=== PATIENT | female | born 1990 | race African-American/Black ===

== ENCOUNTER 2017-09-10 20:35 | Inpatient (IN) | payer SELFPAY ==
[~2017-09-10] VITALS: Ht 175.3 cm; Wt 87.1 kg
[~2017-09-10 20:35] MED LIST: METHYLERGONOVINE MALEATE 0.2MG TABLET ONE; MISOPROSTOL 200MCG TABLET ONE
[2017-09-10] MEDS ORDERED: DEXT 5%/LR + PITOCIN 20UNITS/L 1,000 ML IV SCH (21:28)
[2017-09-10] MEDS ORDERED: LACTATED RINGERS 1,000 ML IV SCH (21:28)
[2017-09-10] MEDS ORDERED: NALOXONE HCL 0.4 MG/ML 1ML VIAL IM PRN (21:30)
[2017-09-10] MEDS ORDERED: CARBOPROST TROMETHAMINE 250 MCG/ML AMPUL IM PRN (21:30)
[2017-09-10] MEDS ORDERED: METHYLERGONOVINE MALEATE 0.2 MG/ML IM PRN (21:30)
[2017-09-10 22:00] LABS: BASOPHILS % 0.9 % (0.0-2.0); EOSINOPHILS % 0.7 % (0.0-5.0); HEMATOCRIT. 29.5 % (36.0-48.0); HEMOGLOBIN. 9.5 g/dL (12.0-16.0); LYMPHOCYTES % 23.5 % (20.0-50.0); MEAN CORPUSCULAR HEMOGLOBIN 24.2 pg (28.0-32.0); MEAN CORPUSCULAR VOLUME 75.2 fL (81.0-99.0); MEAN PLATELET VOLUME 10.4 fl (7.4-10.4); NEUTROPHILS % 67.9 % (40.0-76.0); PLATELET 248 x1000/uL (130-400); RED BLOOD CELL COUNT 3.93 mill/uL (4.2-5.4); RED CELL DISTRIBUTION WIDTH 16.7 % (11.6-14.6)
[2017-09-10 22:05] LABS: CLARITY URINE CLEAR (CLEAR); COLOR URINE YELLOW (YELLOW); KETONES URINE TRACE (NEGATIVE); LEUKOCYTE ESTERASE URINE 2+ (NEGATIVE); NITRITE URINE NEGATIVE (NEGATIVE); OCCULT BLOOD URINE TRACE (NEGATIVE); PH URINE 6.5 (4.5-8.0); PROTEIN URINE 2+ (NEGATIVE)
[2017-09-10 22:10] LABS: CHLORIDE 107 mEq/L (98-107)
[2017-09-10 22:17] LABS: D-DIMER 4.2 mg/L FEU (<0.50); INR 0.9; PARTIAL THROMBOPLASTIN TIME 28.5 sec (23.4-31.0); PROTHROMBIN TIME 9.6 sec (9.4-11.6)
[2017-09-10 22:19] LABS: *BARBITURATES SCREEN URINE NEGATIVE (NEGATIVE); *BENZODIAZEPINES SCREEN URINE NEGATIVE (NEGATIVE)
[2017-09-10 22:20] LABS: *AMPHETAMINES SCREEN URINE PRESUMTIVE POSITIVE (NEGATIVE); *COCAINE SCREEN URINE NEGATIVE (NEGATIVE); CANNABINOID URINE SCREEN NEGATIVE (NEGATIVE); METHADONE URINE SCREEN NEGATIVE (NEGATIVE); OPIATES URINE SCREEN NEGATIVE (NEGATIVE); PHENCYCLIDINE URINE SCREEN NEGATIVE (NEGATIVE)
[2017-09-10 22:38] LABS: HEPATITIS B SURFACE ANTIGEN NEGATIVE; RUBELLA IGG 48.8 IU/mL (4.99-10)
[2017-09-10] MEDS ORDERED: MORPHINE SULFATE/PF 1MG/ML 10ML AMP ONE (22:48)
[2017-09-10] MEDS ORDERED: SODIUM BICARBONATE 4% (2.4MEQ) 5ML VIAL IV ONE (22:51)
[2017-09-10] MEDS ORDERED: CEFAZOLIN 2,000 MG in DEXT 5% WATER 100 ML IV NR (23:00)
[2017-09-10] MEDS ORDERED: ONDANSETRON HCL 4MG/2ML VIAL ONE (23:04)
[2017-09-10] MEDS ORDERED: METOCLOPRAMIDE HCL 10MG/2ML VIAL ONE (23:04)
[2017-09-10] MEDS ORDERED: SUCCINYLCHOLINE CHLORIDE 200MG/10ML VIAL IV ONE (23:40)
[2017-09-10] MEDS ORDERED: FENTANYL CITRATE/PF 50MCG/ML 2ML VIAL ONE (23:40)
[2017-09-10] MEDS ORDERED: PROPOFOL 200MG/20ML VIAL IV ONE (23:40)
[2017-09-11] VITALS (8 sets, daily range): BP systolic 130–156; BP diastolic 74–99
[2017-09-11] MEDS ORDERED: PROPOFOL 200MG/20ML VIAL IV ONE (00:19)
[2017-09-11] MEDS ORDERED: OXYTOCIN 10 UNITS/ML 1ML ONE ×2 (00:20→00:47)
[2017-09-11 00:51] LABS: BG BASE EXCESS -7.3 mmol/L (-2.0-2.0); BG FRACTION INSPIRED OXYGEN 21; BG HCO3 ACT 18.8 mmol/L (22.0-26.0); BG OXYGEN SATURATION 67.6 % (92.0-98.5); BG PCO2 40.1 mmHg (35.0-45.0); BG PH 7.289 (7.350-7.450); BG SAMPLE SITE OTHER; BG VENT MODE ROOM AIR
[2017-09-11 00:52] LABS: BG BASE EXCESS -4.4 mmol/L (-2.0-2.0); BG FRACTION INSPIRED OXYGEN 21; BG HCO3 ACT 25.3 mmol/L (22.0-26.0); BG PCO2 67.6 mmHg (35.0-45.0); BG PH 7.191 (7.350-7.450); BG PO2 < 30.3 mmHg (75.0-100.0); BG SAMPLE SITE OTHER; BG VENT MODE ROOM AIR
[2017-09-11] MEDS ORDERED: DEXT 5%/LR + PITOCIN 20UNITS/L 1,000 ML IV SCH (01:01)
[2017-09-11] MEDS ORDERED: BISACODYL 10MG SUPP PR PRN (01:15)
[2017-09-11] MEDS ORDERED: LANOLIN OINT 0.25 GM TUBE TOP PRN (01:15)
[2017-09-11] MEDS ORDERED: ONDANSETRON HCL 4MG/2ML VIAL IV PRN (01:15)
[2017-09-11] MEDS ORDERED: MORPHINE SULFATE 4 MG/ML CPJ (NOT FOR IM USE) IV PRN (01:15)
[2017-09-11] MEDS ORDERED: HYDROCODONE/ACETAMINOPHEN 5/325MG TABLET PO PRN (01:15)
[2017-09-11] MEDS ORDERED: DIPHENHYDRAMINE 25MG CAPSULE PO PRN (01:15)
[2017-09-11] MEDS: HYDRALAZINE 20MG/ML VIAL IV SCH ×2 (02:04→02:40)
[2017-09-11] MEDS ORDERED: HYDRALAZINE 20MG/ML VIAL ONE (02:38)
[2017-09-11] MEDS ORDERED: HYDRALAZINE 20MG/ML VIAL IV PRN (02:45)
[2017-09-11] MEDS: KETOROLAC 30MG/ML VIAL IV SCH ×3 (07:48→22:36)
[2017-09-11] MEDS: SIMETHICONE 80MG TABLET CHEW PO SCH ×4 (09:00→21:12)
[2017-09-11] MEDS: MAGNESIUM/ALUMINUM HYDROXIDE/SIMETHICONE 30ML UDC PO SCH ×4 (09:00→21:12)
[2017-09-11] MEDS: LABETALOL HCL 100MG TABLET PO SCH ×2 (09:29→21:11)
[2017-09-11 13:07] LABS: CHLORIDE 107 mEq/L (98-107)
[2017-09-11 13:09] LABS: D-DIMER 5.32 mg/L FEU (<0.50)
[2017-09-11] MEDS: DOCUSATE SODIUM 100MG CAPSULE PO SCH (21:13)
[2017-09-12 03:50] VITALS: BP 153/90
[2017-09-12] MEDS: KETOROLAC 30MG/ML VIAL IV SCH (06:41)
[2017-09-12 08:00] VITALS: BP 139/86
[2017-09-12] MEDS: SIMETHICONE 80MG TABLET CHEW PO SCH ×3 (08:16→21:18)
[2017-09-12] MEDS: MAGNESIUM/ALUMINUM HYDROXIDE/SIMETHICONE 30ML UDC PO SCH ×3 (08:16→21:18)
[2017-09-12] MEDS: LABETALOL HCL 100MG TABLET PO SCH ×2 (08:49→21:19)
[2017-09-12] MEDS: IBUPROFEN 400MG TABLET PO PRN (11:20)
[2017-09-12 12:00] VITALS: BP 134/81
[2017-09-12] MEDS: HYDROCODONE/ACETAMINOPHEN 5/325MG TABLET PO PRN ×2 (13:04→21:26)
[2017-09-12 13:30] LABS: HEMATOCRIT. 21.5 % (36.0-48.0); MEAN CORPUSCULAR HEMOGLOBIN 24.1 pg (28.0-32.0); MEAN CORPUSCULAR VOLUME 74.6 fL (81.0-99.0); PLATELET 211 x1000/uL (130-400); RED BLOOD CELL COUNT 2.89 mill/uL (4.2-5.4); RED CELL DISTRIBUTION WIDTH 17.2 % (11.6-14.6)
[2017-09-12 13:54] LABS: HEMOGLOBIN. 6.9 g/dL (12.0-16.0)
[2017-09-12 16:00] VITALS: BP 132/84
[2017-09-12 16:32] LABS: PLATELET ESTIMATE NORMAL
[2017-09-12] MEDS: FERROUS SULFATE 325MG TABLET PO SCH (18:36)
[2017-09-12 20:00] VITALS: BP 138/92
[2017-09-12] MEDS: DOCUSATE SODIUM 100MG CAPSULE PO SCH (21:18)
[2017-09-13] VITALS: BP 135/94
[2017-09-13 05:30] VITALS: BP 142/89
[2017-09-13] MEDS: HYDROCODONE/ACETAMINOPHEN 5/325MG TABLET PO PRN (05:59)
[2017-09-13 08:00] VITALS: BP 132/76
[2017-09-13] MEDS: FERROUS SULFATE 325MG TABLET PO SCH (13:07)
[2017-09-13] MEDS: IBUPROFEN 400MG TABLET PO PRN (13:08)
[2017-09-13] MEDS: LABETALOL HCL 100MG TABLET PO SCH (13:08)
[2017-09-15 14:21] LABS: AMPHETAMINE CONF URINE Positive (.)
== END 2017-09-13 16:30 | disposition home or self-care (01) | DRG 540 ==
LOC: L&D 20:35 → OBSVTOIN 20:35 → 7EST PP/OB 09-11 03:46
PROVIDERS: ADMIT Specialist; ATTEND Specialist
PROC: 10D00Z1 Extraction of Products of Conception, Low, Open Approach (ICD-10-PCS; principal; 2017-09-10 22:50)
DX: O34.211 Maternal care for low transverse scar from previous cesarean delivery (principal); O99.324 Drug use complicating childbirth; O99.02 Anemia complicating childbirth; D64.9 Anemia, unspecified; F15.10 Other stimulant abuse, uncomplicated; F12.10 Cannabis abuse, uncomplicated; O99.334 Smoking (tobacco) complicating childbirth; F17.200 Nicotine dependence, unspecified, uncomplicated; Z37.0 Single live birth; Z3A.37 37 weeks gestation of pregnancy
CPT/HCPCS: 36415; 36600; 80053; 80305; 80307; 81003; 82805; 84450; 84460; 84550; 85007; 85025; 85027; 85379; 85384; 85610; 85730; 86592; 86703; 86762; 86850; 86900; 86920; 87077; 87086; 87186; 87340; 88307; G0378; J0330; J0360; J0690; J1885; J2270; J2274; J2405; J2590; J2704; J2765; J3010; J3490; J7060; J7120; A4315